=== PATIENT | male | born 2000 | race Asian ===

== ENCOUNTER 2021-08-08 18:24 | Emergency (ER) | payer OTHER ==
[~2021-08-08] VITALS: Ht 182.9 cm; Wt 95.5 kg
[2021-08-08 18:32] VITALS: BP 145/81
== END 2021-08-08 20:10 | disposition home or self-care (01) ==
LOC: EMS 18:24
DX: B02.30 Zoster ocular disease, unspecified (principal)
CPT/HCPCS: 99283; Z7502